=== PATIENT | male | born 1975 | race Caucasian/White ===

== ENCOUNTER 2020-01-31 07:47 | Emergency (ER) | payer OTHER ==
[2020-01-31] MEDS: ONDANSETRON INJ 4 MG/2 ML VIAL IV ONE (08:10)
[2020-01-31] MEDS: MORPHINE SULFATE INJ 10 MG/ML VIAL IV ONE (08:11)
[2020-01-31] MEDS: KETOROLAC TROMETHAMINE INJ 30 MG/ML VIAL IV ONE (08:12)
[2020-01-31] MEDS: SODIUM CHLORIDE 0.9% (FLUSH) 10 ML SYG IV PRN (08:17)
--- NOTE | 2020-01-31 08:42 | CT ---
EXAM DESCRIPTION: Abdomen/Pelvis w/o Contrast CLINICAL HISTORY: 44 years, 44 years, Male, Male, left flank pain, suspected stone COMPARISON: None. TECHNIQUE: CT of the abdomen and pelvis is performed according to our non contrast protocol This exam was performed according to our departmental dose-optimization program, which includes automated exposure control, adjustment of the mA and/or kV according to patient size and/or use of iterative reconstruction technique. FINDINGS: The lung bases are clear with small retrocardiac hiatal hernia. The unenhanced liver and spleen are normal in appearance without cystic or solid mass with normal distention of the gallbladder without visible stones or ductal dilation. A small accessory splenule noted. The unenhanced pancreas and adrenal glands are unremarkable. Right kidney demonstrates mild perinephric stranding with multiple tiny 1-2 mm nonobstructing calculi without hydronephrosis. No large cyst or mass on noncontrast imaging noted. The left kidney is hydronephrotic with extensive perinephric stranding and numerous small nonobstructing intrarenal calculi noted. Mild hydroureter to a point just above the bladder with an obstructing 3 mm calculus approximately 1 to 2 cm proximal to the UVJ noted on the left. Moderate proximal hydronephrosis and ureterectasis with perinephric extravasation of urine noted The aorta and vena cava are unremarkable with mild atherosclerotic calcification. The bladder is incompletely distended without intraluminal stones. A small fat-containing left inguinal hernia noted. Small fat-containing umbilical hernia also noted. Prostate is normal in size with numerous small calculi noted in the right posterior aspect of the prostate. No evidence of bladder outlet obstruction. Small and large bowel caliber is normal. No significant diverticulosis or acute inflammation noted. The cecum and ileocecal valve are unremarkable with an opaque tablet were ingested material in the cecum. The appendix is not identified but no right lower quadrant inflammatory changes noted. The bony spine and pelvis is unremarkable. IMPRESSION: 1. Bilateral nephrocalcinosis with moderate hydronephrosis and hydroureter left kidney with extravasated urine surrounding the kidney and obstructing 3 mm calculus distal left ureter just above the UVJ. 2. Small retrocardiac hiatal hernia and small fat-containing umbilical and left inguinal hernia. 3. Small right-sided prostatic calculi. Electronically signed by: Pietro Werner MD 01/31/2020 8:41 AM CDT
--- NOTE | 2020-01-31 08:46 | ED.PDOC ---
History of Present Illness - General Chief Complaint: Problem Stated Complaint: left lower back/groin pain Time Seen by Provider: 01/31/20 08:04 Source: patient, RN notes reviewed, Vital Signs reviewed Exam Limitations: no limitations - History of Present Illness Initial Comments: This is a 44-year-old male with longstanding history of prior kidney stones presenting with left flank pain onset last night around 11:30 PM. He denies any recent injury or trauma. He states pain is very similar to his previous kidney stones. He denies any dysuria or hematuria. Pain began in the left thoracic area and has migrated to the left lower quadrant and left testicle. He denies any fever. He is taken Tylenol and ibuprofen as well as Flomax without any improvement. Allergies/Adverse Reactions: Allergies NO KNOWN ALLERGY Allergy (Verified 01/31/20 08:00) Home Medications: Ambulatory Orders HYDROcodone 10MG/APAP 325MG [[place] 10/325] 1 tab PO Q6H PRN #20 tab 01/31/20 Ibuprofen [Motrin] 600 mg PO Q6HR PRN #20 tab 01/31/20 Ondansetron Odt [Zofran ODT] 4 - 8 mg PO Q6H PRN #12 tab 01/31/20 RX: Metoprolol Tartrate 50 mg PO DAILY 01/31/20 RX: Quetiapine Fumarate 300 mg PO BEDTIME 01/31/20 RX: Rosuvastatin Calcium 5 mg PO BEDTIME 01/31/20 Review of Systems - Review of Systems Constitutional: Denies: chills, fever EENTM: Denies: ear pain, nose congestion Respiratory: Denies: orthopnea, short of breath, wheezing Cardiology: Denies: chest pain, edema, palpitations Gastrointestinal/Abdominal: States: abdominal pain, nausea, vomiting - x1. Denies: constipation, diarrhea Genitourinary: States: pain. Denies: discharge, dysuria, frequency, hematuria Musculoskeletal: Denies: joint pain, muscle pain Skin: Denies: dryness, lesions, rash Neurological: Denies: headache, paresthesia Endocrine: States: no symptoms reported Hematologic/Lymphatic: States: no symptoms reported Past Medical History (General) - Patient Medical History Hx Stroke: No Hx Congestive Heart Failure: No Hx Hypertension: Yes Hx Diabetes: No Surgical History: appendectomy - Vaccination History Hx Influenza Vaccination: No - Social History Hx Tobacco Use: Yes Family Medical History - Family History Father Family History: Unknown Living Status: Still Living Physical Exam - Physical Exam General Appearance: Alert, Other - Appears uncomfortable Ears, Nose, Throat: hearing grossly normal, normal ENT inspection, normal pharynx Respiratory: lungs clear, normal breath sounds, no respiratory distress, no accessory muscle use Cardiovascular/Chest: normal peripheral pulses, regular rate, rhythm, no edema, no gallop, no JVD, no murmur Gastrointestinal/Abdominal: non tender, soft, no organomegaly, no pulsatile mass Back Exam: normal inspection, no vertebral tenderness, CVA tenderness (L) - Mild Extremity: normal range of motion, non-tender, normal inspection Neurologic: no motor/sensory deficits, alert, normal mood/affect, oriented x 3 Skin Exam: normal color, warm/dry Progress - Progress Progress: 01/31/20 09:20 Rechecked. Feeling better, pain well controlled. Tolerating p.o. No evidence of infected stone. Patient is afebrile, very minimal leukocytosis, no WBCs in urine or LE. Discussed plan for discharge, recommended follow-up with urology on an outpatient basis. Strict warnings given to return the emergency for worsening pain, fever, intractable vomiting, or any other concerns DDX: Kidney stone, pyelonephritis, UTI MDM: Longstanding history of multiple kidney stones, pain similar to prior stones. CT showed 4 mm UVJ stone on the left with moderate hydronephrosis. He has a slight leukocytosis at 11,000, minimal WBCs in UA, no LE, no fever, very low suspicion for infected stone at this time. Pain is well controlled, tolerating p.o. I feel the patient is stable for discharge home. Recommended follow-up with urology on an outpatient basis. Strict warnings given to return the [facility] room for worsening pain, intractable vomiting, fever, or any other concerns. Guzman Bean DO [facility] #[id number] - Results/Orders Results/Orders: Laboratory Results - last 24 hr 01/31/20 01/31/20 01/31/20 08:08 08:08 08:46 WBC 11.0 H RBC 4.39 L Hgb 13.9 L Hct 41.3 L MCV 94.1 H MCH 31.6 H MCHC 33.6 RDW 13.9 Plt Count 204 MPV 7.5 Absolute Neuts (auto) 8.30 H Absolute Lymphs (auto) 1.50 Absolute Monos (auto) 1.00 H Absolute Eos (auto) 0.10 Absolute Basos (auto) 0.10 Neutrophils % 75.5 Lymphocytes % 13.6 L Monocytes % 9.1 H Eosinophils % 1.2 Basophils % 0.6 Sodium 136 Potassium 3.7 Chloride 104 Carbon Dioxide 19 L Anion Gap 16.7 BUN 24 H Creatinine 1.71 H BUN/Creatinine Ratio 14.0 Random Glucose 107 H Serum Osmolality 276.5 Calcium 9.6 Urine Color Yellow Urine Appearance Clear Urine pH 6.0 Ur Specific [place]re[place] 1.020 Urine Protein Negative Urine Glucose (UA) Negative Urine Ketones 40 H Urine Blood Trace-intact H Urine Nitrite Negative Urine Bilirubin Small H Urine Urobilinogen 0.2 Ur Leukocyte Esterase Negative Urine RBC 1-3 Urine WBC 0-1 Ur Epithelial Cells 0 Urine Bacteria 0 EXAM DESCRIPTION: Abdomen/Pelvis w/o Contrast CLINICAL HISTORY: 44 years, 44 years, Male, Male, left flank pain, suspected stone COMPARISON: None. TECHNIQUE: CT of the abdomen and pelvis is performed according to our non contrast protocol This exam was performed according to our departmental dose- optimization program, which includes automated exposure control, adjustment of the mA and/or kV according to patient size and/or use of iterative reconstruction technique. FINDINGS: The lung bases are clear with small retrocardiac hiatal hernia. The unenhanced liver and spleen are normal in appearance without cystic or solid mass with normal distention of the gallbladder without visible stones or ductal dilation. A small accessory splenule noted. The unenhanced pancreas and adrenal glands are unremarkable. Right kidney demonstrates mild perinephric stranding with multiple tiny 1-2 mm nonobstructing calculi without hydronephrosis. No large cyst or mass on noncontrast imaging noted. The left kidney is hydronephrotic with extensive perinephric stranding and numerous small nonobstructing intrarenal calculi noted. Mild hydroureter to a point just above the bladder with an obstructing 3 mm calculus approximately 1 to 2 cm proximal to the UVJ noted on the left. Moderate proximal hydronephrosis and ureterectasis with perinephric extravasation of urine noted The aorta and vena cava are unremarkable with mild atherosclerotic calcification. The bladder is incompletely distended without intraluminal stones. A small fat-containing left inguinal hernia noted. Small fat-containing umbilical hernia also noted. Prostate is normal in size with numerous small calculi noted in the right posterior aspect of the prostate. No evidence of bladder outlet obstruction. Small and large bowel caliber is normal. No significant diverticulosis or acute inflammation noted. The cecum and ileocecal valve are unremarkable with an opaque tablet were ingested material in the cecum. The appendix is not identified but no right lower quadrant inflammatory changes noted. The bony spine and pelvis is unremarkable. IMPRESSION: 1. Bilateral nephrocalcinosis with moderate hydronephrosis and hydroureter left kidney with extravasated urine surrounding the kidney and obstructing 3 mm calculus distal left ureter just above the UVJ. 2. Small retrocardiac hiatal hernia and small fat-containing umbilical and left inguinal hernia. 3. Small right-sided prostatic calculi. Electronically signed by: Pietro Werner MD 01/31/2020 8:41 AM Departure - Departure Clinical Impression: Acute left flank pain, Ureterolithiasis, Ureteral colic Time of Disposition: 09:19 Disposition: Discharge to Home or Self Care Condition: Good Departure Forms: ED Discharge - Pt. Copy, Patient Portal Self Enrollment Instructions: DI for Kidney Stones Referrals: UNKNOWN,PHYSICIAN [Primary Care Provider] - 1-2 Weeks Prescriptions: Ibuprofen [Motrin] 600 mg PO Q6HR PRN #20 tab PRN Reason: Mild To Moderate Pain HYDROcodone 10MG/APAP 325MG [[place] 10/325] 1 tab PO Q6H PRN #20 tab PRN Reason: Severe Pain Ondansetron Odt [Zofran ODT] 4 - 8 mg PO Q6H PRN #12 tab PRN Reason: Nausea Home Medications: Ambulatory Orders HYDROcodone 10MG/APAP 325MG [[place] 10/325] 1 tab PO Q6H PRN #20 tab 01/31/20 Ibuprofen [Motrin] 600 mg PO Q6HR PRN #20 tab 01/31/20 Ondansetron Odt [Zofran ODT] 4 - 8 mg PO Q6H PRN #12 tab 01/31/20 RX: Metoprolol Tartrate 50 mg PO DAILY 01/31/20 RX: Quetiapine Fumarate 300 mg PO BEDTIME 01/31/20 RX: Rosuvastatin Calcium 5 mg PO BEDTIME 01/31/20
[2020-01-31 09:19] VITALS: O2SAT 95
[2020-01-31] MEDS: HYDROcodone 5MG/APAP 325MG 1 EA TAB PO ONE (09:27)
[2020-01-31 09:50] VITALS: BP 123/84; TEMP 96.9
== END 2020-01-31 09:35 | disposition home or self-care (01) ==
LOC: ER 07:47
DX: N20.1 Calculus of ureter (principal); R10.9 Unspecified abdominal pain; R11.2 Nausea with vomiting, unspecified; I10 Essential (primary) hypertension

== ENCOUNTER 2020-01-31 15:43 | Emergency (ER) | payer OTHER ==
[2020-01-31] MEDS: KETOROLAC TROMETHAMINE INJ 60 MG/2 ML VIAL IM ONE (16:01)
[2020-01-31] MEDS: PROMETHAZINE HCL INJ 25 MG/ML VIAL IM ONE (16:04)
[2020-01-31] MEDS: HYDROmorphone HCL INJ 2 MG/ML VIAL IM ONE (16:04)
[2020-01-31] MEDS: ONDANSETRON ODT 8 MG TAB SL ONE (16:06)
--- NOTE | 2020-01-31 16:21 | ED.PDOC ---
History of Present Illness - General Chief Complaint: GI Problem Stated Complaint: Vomiting/ flank pain Time Seen by Provider: 01/31/20 15:49 Information Source: patient, RN notes reviewed, Vital Signs reviewed, family, old records - History of Present Illness Initial Comments: This is a 44-year-old male with known history of kidney stones presenting to the emergency room for the second time today for left flank pain. He was seen earlier today and discharged. CT at that time showed a 4 mm left UVJ stone with hydronephrosis. He was afebrile, UA showed no evidence of infection. He did have a slight leukocytosis of 13,000. He states he took hydrocodone approximately 1 hour prior to arrival and began vomiting, he states he has had reactions like this to codeine and hydrocodone before in the past. He was reluctant to take tramadol before due to taking quetiapine. Review of Systems - Review of Systems Constitutional: Denies: chills, fever Respiratory: Denies: orthopnea, short of breath, stridor Cardiology: Denies: chest pain, edema, palpitations, syncope Gastrointestinal/Abdominal: States: abdominal pain, nausea, vomiting. Denies: constipation, diarrhea Genitourinary: Denies: dysuria, frequency, hematuria Musculoskeletal: Denies: joint pain, joint swelling, muscle pain, muscle stiffness Skin: Denies: dryness, lesions, rash Neurological: Denies: headache, numbness, paresthesia Past Medical History (General) - Patient Medical History Hx Stroke: No Hx Dementia: No Hx Asthma: No Hx of COPD: No Hx Cardiac Disorders: No Hx Congestive Heart Failure: No Hx Pacemaker: No Hx Hypertension: Yes Hx Thyroid Disease: No Hx Diabetes: No Hx Gastroesophageal Reflux: No Hx Renal Disease: No Hx Cancer: No Hx of HIV: No Hx Hepatitis C: No Hx MRSA: No Surgical History: appendectomy - Vaccination History Hx Influenza Vaccination: No - Social History Hx Tobacco Use: Yes Family Medical History - Family History Father Family History: Unknown Living Status: Still Living Physical Exam - Physical Exam General Appearance: Alert, Obvious distress - Appears very uncomfortable, actively retching Eyes, Ears, Nose, Throat Exam: PERRL/EOMI, normal ENT inspection Neck: non-tender, supple Respiratory: chest non-tender, lungs clear, normal breath sounds Cardiovascular/Chest: normal peripheral pulses, regular rate, rhythm, no edema, no JVD Peripheral Pulses: No deficit Gastrointestinal/Abdominal: normal bowel sounds, soft, no organomegaly, other - Mild left lower quadrant tenderness Back Exam: normal inspection, no CVA tenderness, no vertebral tenderness Extremity: normal range of motion, non-tender, normal inspection Neurologic: no motor/sensory deficits, alert, normal mood/affect Skin Exam: normal color, warm/dry Progress - Progress Progress: 01/31/20 16:40 Rechecked. Pain improving, still slightly nauseated. Awaiting urinalysis sample. We will continue to monitor. 01/31/20 17:02 Rechecked. Patient still nauseated despite having taken Zofran prior to arrival and IM Phenergan here. Will give Haldol and reassess 01/31/20 17:31 Rechecked. Patient feeling better, still slightly nauseated. Pain is well controlled at this time. Patient states he has been following an Atkins (high- protein) diet. His father has longstanding history of widespread calcium deposits. I discussed nephrocalcinosis noted on CT earlier today. Stressed importance of low protein diet going forward as well as importance of adequate hydration. We will continue to observe in the ED to make sure nausea is adequately improved. 01/31/20 17:52 Rechecked. Nausea markedly improved, patient feels much better and wants to go home. Strict warnings given to return the emergency room for worsening symptoms, fever, intractable vomiting, or any other concerns. DDX: Kidney stone, dehydration, UTI MDM: Second ED visit today for left flank pain related to kidney stone. 4 mm stone at the left UVJ with moderate hydronephrosis. Patient had nephrocalcinosis on CT earlier today. This was discussed in detail with the patient. Pain well controlled at this time, nausea improved after IM Haldol, tolerating p.o. Kidney stone warnings given. - EKG/XRAY/CT CT Ordered: No Departure - Departure Clinical Impression: Acute left flank pain, Ureteral colic, Ureterolithiasis Nausea & vomiting Qualifiers: Vomiting type: unspecified Vomiting Intractability: non-intractable Qualified Code(s): R11.2 - Nausea with vomiting, unspecified Disposition: Discharge to Home or Self Care Condition: Good Departure Forms: ED Discharge - Pt. Copy, Patient Portal Self Enrollment, Work Release Form Instructions: Kidney Stones (DC) Diet: resume usual diet Activity: increase activity as tolerated Prescriptions: Promethazine Tab [Phenergan Tablet] 25 mg PO Q6H PRN #12 tab PRN Reason: Nausea Tramadol HCl 50 - 100 mg PO Q6H PRN #20 tab PRN Reason: Moderate To Severe Pain Home Medications: Ambulatory Orders HYDROcodone 10MG/APAP 325MG [[place] 10/325] 1 tab PO Q6H PRN #20 tab 01/31/20 Ibuprofen [Motrin] 600 mg PO Q6HR PRN #20 tab 01/31/20 Metoprolol Tartrate 50 mg PO DAILY 01/31/20 Ondansetron Odt [Zofran ODT] 4 - 8 mg PO Q6H PRN #12 tab 01/31/20 Promethazine Tab [Phenergan Tablet] 25 mg PO Q6H PRN #12 tab 01/31/20 Quetiapine Fumarate 300 mg PO BEDTIME 01/31/20 Rosuvastatin Calcium 5 mg PO BEDTIME 01/31/20 Tramadol HCl 50 - 100 mg PO Q6H PRN #20 tab 01/31/20
[2020-01-31] MEDS: HALOPERIDOL LACTATE INJ 5 MG/ML VIAL IM ONE (17:06)
[2020-01-31 17:53] VITALS: BP 130/87; TEMP 97.2; O2SAT 98
== END 2020-01-31 17:53 | disposition home or self-care (01) ==
LOC: ER 15:43
DX: N20.1 Calculus of ureter (principal); R11.2 Nausea with vomiting, unspecified; I10 Essential (primary) hypertension; R10.32 Left lower quadrant pain